=== PATIENT | female | born 1960 | race Caucasian/White ===

== ENCOUNTER → 2021-01-23 12:29 | Outpatient (CLI) | payer BC, SELFPAY ==
--- NOTE | ~2021-01-23 | MM_ITS ---
EXAMINATION: MM screening elvira BI w angela HISTORY: Screening mammogram TECHNIQUE: Craniocaudal and mediolateral oblique 3-D tomosynthesis images were obtained and synthetic 2-D images were generated. CAD analysis was submitted and interpreted. COMPARISON: 01/20/2018, 12/23/2016, 10/14/2014 bilateral digital screening mammogram examinations BREAST PARENCHYMAL COMPOSITION: There are scattered areas of fibroglandular density. FINDINGS: Stable mild fibroglandular asymmetry. There is no evidence of suspicious mass, calcificatio n, or architectural distortion to suggest malignancy in either breast. There has been no suspicious i nterval change. IMPRESSION: 1. No mammographic evidence of malignancy. 2. Recommend routine screening mammography in one year. BI-RADS Category 2: Benign finding(s). Reviewed, dictated and finalized at location A.
== END ==
PROVIDERS: Visit Provider Nurse Practitioner
DX: Z12.31 Encounter for screening mammogram for malignant neoplasm of breast (principal)
CPT/HCPCS: 77063; 77067

== ENCOUNTER → 2021-03-13 18:08 | Outpatient (CLI) | payer BC, SELFPAY ==
--- NOTE | ~2021-03-13 | DEXA_ITS ---
Bone Density Report Name: Ramona Corona Age: 60 Sex: Female Ethnicity: White Date of : 1960 Indication: postmenopausal; screening for osteoporosis; cancer; Referring Provider: Grant*Tru, Angeline Study: Bone densitometry was performed. Exam Date: March 13, 2021 Accession number: [id number] Bone Density: Region BMD T-score Z-score Classification AP Spine (L1-L4) 0.909 -1.3 0.1 Osteopenia Femoral Neck (Left) 0.709 -1.3 -0.1 Osteopenia Total Hip (Left) 0.921 -0.2 0.7 Normal Femoral Neck (Right) 0.679 -1.5 -0.3 Osteopenia Total Hip (Right) 0.845 -0.8 0.1 Normal Total Hip Mean 0.883 -0.5 0.4 Normal World Health Organization criteria for BMD impression classify patients as: Normal (T-score at or above -1.0), Osteopenia (T-score between -1.0 and -2.5), or Osteoporosis (T-score at or below -2.5). 10-year Fracture Risk(1): Major Osteoporotic Fracture 7.3% Hip Fracture 0.6% Reported Risk Factors: [place] (), Neck BMD=0.679, BMI=32.2 (1) FRAX(R) Version 3.08. Fracture probability calculated for an untreated patient. Fracture probability may be lower if the patient has received treatment. Previous Exams: Region Exam Age BMD T-score BMD Change BMD Change Date g/cm2 vs Baseline vs Previous AP Spine(L1-L4) 03/13/2021 60 0.909 -1.3 -0.059 -0.059 12/23/2016 56 0.969 -0.7 Total Hip(Left) 03/13/2021 60 0.921 -0.2 -0.028 -0.028 12/23/2016 56 0.949 0.1 Total Hip(Right) 03/13/2021 60 0.845 -0.8 -0.058 -0.058 12/23/2016 56 0.903 -0.3 *Denotes significance at 95% confidence level, LSC for AP Spine = 0.022 g/cm2, LSC for Total Hip = 0.027 g/cm2 Clinical Information Provided by Patient: Has used the following medications: Calcium, MTV Has the following medical conditions: Cancer Patient maximum height was 64.5 Menopause Age: 55 Drinks caffeinated beverages Onset of menses at age 15 Number of children 3 Impression: The patient has low bone mass, based on the Right Femoral Neck T-score. The patient has an estimated ten-year risk of hip fracture of 0.6% and an estimated ten-year risk of major fracture of 7.3%, based on the WHO FRAX algorithm. No significant bone loss was observed. Discussion: BONE DENSITY IS LOW AT ONE OR MORE SKELETAL SITES. This patient's lowest T-score is low at one or more skeletal sites. It meets the World Health Organization's (WHO) criteri
== END ==
PROVIDERS: Visit Provider Nurse Practitioner
DX: Z78.0 Asymptomatic menopausal state (principal); M85.89 Other specified disorders of bone density and structure, multiple sites
CPT/HCPCS: 77080

== ENCOUNTER → 2022-04-22 09:59 | Outpatient (CLI) | payer BC, SELFPAY ==
--- NOTE | ~2022-04-22 | MM_ITS ---
EXAMINATION: MM screening elvira BI w angela HISTORY: Screening TECHNIQUE: Craniocaudal and mediolateral oblique 3-D tomosynthesis images were obtained and synthetic 2-D images were generated. CAD analysis was submitted and interpreted. COMPARISON: Comparison to multiple prior studies sequentially, with oldest reviewed study dated 07/10. BREAST PARENCHYMAL COMPOSITION: There are scattered areas of fibroglandular density. FINDINGS: There is no evidence of suspicious mass, calcification, or architectural distortion to sugg est malignancy in either breast. There has been no suspicious interval change. IMPRESSION: 1. No mammographic evidence of malignancy. 2. Recommend routine screening mammography in one year. BI-RADS Category 1: Negative Reviewed, dictated and finalized at location A.
== END ==
PROVIDERS: PCP Internal Medicine; Visit Provider Nurse Practitioner
DX: Z12.31 Encounter for screening mammogram for malignant neoplasm of breast (principal)
CPT/HCPCS: 77063; 77067

== ENCOUNTER 2022-10-07 01:10 | Day surgery (SDC) | payer BC, SELFPAY ==
--- NOTE | 2022-10-06 13:07 | PM.HPGS ---
History of Present Illness History of Present Illness Consent: Risks, benefits, and alternatives have been discussed and questions answered. Patient agrees to proceed with procedure. Chief complaint: hx of colon polyps, fam hx of colon cancer Narrative: Ramona Corona is a 62 year old female Who was sent for colon cancer screening. She had colon cancer resected 5 years ago after it had been discovered on colonoscopy. All lymph nodes were negative. There was only submucosal invasion by the tumor. Review of Systems Review of Systems: All systems reviewed & are unremarkable except as noted in HPI and below PMFSH Past Medical History Medical History Arthritis Benign bladder tumor Kidney stones Rectal polyp Seasonal allergies Surgical History Surgical History H/O cervical spine surgery History of cardiac catheterization S/P right rotator cuff repair Family History Family History Other Family history of malignant neoplasm Social History Social History Smoking status: Never smoker Alcohol intake: current Substance use type: does not use Living arrangements: with family Gender identity (if verbalized by the patient): Female Spiritual care concerns: No Meds Home Medications and Allergies Home Medications Medication Instructions Recorded Confirmed Type atorvastatin 20 mg tablet 20 mg PO DAILY 09/28/22 09/28/22 History cholecalciferol (vitamin D3) 25 25 mcg PO DAILY 09/28/22 09/28/22 History mcg (1,000 unit) tablet multivit with minerals-iron 18 1 tablet PO DAILY 09/28/22 09/28/22 History mg-folic ac 400 mcg-vit K 25 mcg tablet (One Daily Women's) Allergies Allergy/AdvReac Type Severity Reaction Status Date / Time ondansetron Allergy Unknown Hives Verified 10/07/22 10:11 Exam Const: General: alert Orientation/consciousness: patient oriented x3 Resp: Auscultation: clear to auscultation bilaterally Cardio: Rhythm: regular rhythm GI: GI Palp: Yes Soft to palpation and No Tenderness to palpation present (GI) Neuro: General: patient oriented x3 Assessment and Plan Assessment and plan (1) Colon cancer screening: Code(s): Z12.11 - Encounter for screening for malignant neoplasm of colon Status: Acute Assessment and Plan: Colonoscopy with possible biopsy or polypectomy or cautery or injection of substances.
[2022-10-07 10:13] VITALS: BP 140/89; PULSE 84; RESP 18; TEMP 36.2; O2SAT 100
[2022-10-07] MEDS: LACTATED RINGERS 1,000 ML 150 ML IV CONT (10:30)
--- NOTE | 2022-10-07 10:55 | P.PNAN_ITS ---
Anes - Initial Pre Proc Eval Procedure: Operation Date: 10/07/22 11:15 Proposed Procedures p Screening Colonoscopy - Garth Garg MD Date/Time: 10/07/22 10:55 Surgeon: Garth Garg MD Pre Op Diagnosis: hx of colon polyps, fam hx of colon cancer Patient Data Age: 62 Gender: F Height: 1.63 m Weight: 84.3 kg Last Vital Signs Temp 36.2 C L 10/07/22 10:13 Pulse 84 10/07/22 10:13 Resp 18 10/07/22 10:13 BP 140/89 10/07/22 10:13 Pulse Ox 100 10/07/22 10:13 O2 Del Method Room Air 10/07/22 10:13 Allergies Allergy/AdvReac Type Severity Reaction Status Date / Time ondansetron Allergy Unknown Hives Verified 10/07/22 10:11 Home Medications Medication Instructions Recorded Confirmed Type atorvastatin 20 mg tablet 20 mg PO DAILY 09/28/22 09/28/22 History cholecalciferol (vitamin D3) 25 25 mcg PO DAILY 09/28/22 09/28/22 History mcg (1,000 unit) tablet multivit with minerals-iron 18 1 tablet PO DAILY 09/28/22 09/28/22 History mg-folic ac 400 mcg-vit K 25 mcg tablet (One Daily Women's) Patient hx anesthesia problems: none Family hx anesthesia problems: none Results Review: All pre-operative results and documents have been reviewed as part of the pre- operative evaluation. PMFSH Past Medical History Medical History Arthritis Benign bladder tumor Kidney stones Rectal polyp Seasonal allergies Surgical History Surgical History H/O cervical spine surgery History of cardiac catheterization S/P right rotator cuff repair Family History Family History Other Family history of malignant neoplasm Social History Social History Smoking status: Never smoker Alcohol intake: current Substance use type: does not use Living arrangements: with family Gender identity (if verbalized by the patient): Female Spiritual care concerns: No Anes - Eval Final PreProcedure Day of Procedure 10/07/22 10:55 Patient weight: obese Heart: regular rate and rhythm Lungs: clear to auscultation Airway: Mallampati scale class II Neurological: alert and oriented Last oral intake: >/= 8 hours ASA classification: II Emergent: no Anesthetic plan: proceed Anesthesia type and monitoring: general GIVS and standard monitoring Results Review: All pre-operative results and documents have been reviewed as part of the pre- operative evaluation. Informed Consent: The patient's anesthetic plan and its attendant risks and benefits were discussed with the patient/family/POA. Questions were solicited and answers provided to the satisfaction of the patient/family/POA.
[2022-10-07] MEDS: SIMETHICONE ORAL SUSPENSION 20 MG/0.3 ML 30 ML BOTTLE 0.6 ML IRRIGATION (11:28)
[2022-10-07 11:38] VITALS: BP 133/70; PULSE 50; RESP 16; O2SAT 100
[2022-10-07 11:48] VITALS: BP 157/77; PULSE 54; RESP 24; O2SAT 98
[2022-10-07 11:57] VITALS: BP 119/70; PULSE 50; RESP 17; O2SAT 98
== END 2022-10-07 11:58 | disposition home or self-care (01) ==
PROVIDERS: PCP Internal Medicine; Visit Provider Internal Medicine Gastroenterology
PROC: 0DJD8ZZ Inspection of Lower Intestinal Tract, Via Natural or Artificial Opening Endoscopic (ICD-10-PCS; CPT 45378; principal; 2022-10-07 11:15)
DX: Z12.11 Encounter for screening for malignant neoplasm of colon (principal); D12.8 Benign neoplasm of rectum; K64.8 Other hemorrhoids; Z98.0 Intestinal bypass and anastomosis status; Z90.49 Acquired absence of other specified parts of digestive tract; Z85.038 Personal history of other malignant neoplasm of large intestine; E66.9 Obesity, unspecified; Z68.31 Body mass index [BMI] 31.0-31.9, adult
CPT/HCPCS: 45380; 88305; J2001; J2704; J7120

== ENCOUNTER 2024-01-16 10:26 | Outpatient (CLI) | payer OTHER, SELFPAY ==
--- NOTE | ~2024-01-16 | MM_ITS ---
EXAMINATION: MM screening elvira BI w angela HISTORY: Screening TECHNIQUE: Craniocaudal and mediolateral oblique 3-D tomosynthesis images were obtained and synthetic 2-D images were generated. CAD analysis was submitted and interpreted. COMPARISON: Comparison to multiple prior studies sequentially, with oldest reviewed study dated 03/2018. BREAST PARENCHYMAL COMPOSITION: Not dense: There are scattered areas of fibroglandular density. FINDINGS: There is no evidence of suspicious mass, calcification, or architectural distortion to sugg est malignancy in either breast. There has been no suspicious interval change. IMPRESSION: 1. No mammographic evidence of malignancy. 2. Recommend routine screening mammography in one year. BI-RADS Category 1: Negative Reviewed, dictated and finalized at location B.
--- NOTE | ~2024-01-16 | DEXA_ITS ---
Bone Density Report Name: Ramona Corona Age: 63 Sex: Female Ethnicity: White Date of : 1960 Indication: osteopenia; postmenopausal Referring Provider: Grant, Angeline Study: Bone densitometry was performed. Exam Date: January 16, 2024 Accession number: [id number] Bone Density: Region BMD T-score Z-score Classification AP Spine (L1-L4) 0.847 -1.8 -0.3 Osteopenia Femoral Neck (Left) 0.692 -1.4 -0.1 Osteopenia Total Hip (Left) 0.875 -0.5 0.5 Normal Femoral Neck (Right) 0.695 -1.4 0.0 Osteopenia Total Hip (Right) 0.813 -1.1 0.0 Osteopenia Total Hip Mean 0.844 -0.8 0.3 Normal World Health Organization criteria for BMD impression classify patients as: Normal (T-score at or above -1.0), Osteopenia (T-score between -1.0 and -2.5), or Osteoporosis (T-score at or below -2.5). 10-year Fracture Risk(1): Major Osteoporotic Fracture 7.7% Hip Fracture 0.6% Reported Risk Factors: [place] (), Neck BMD=0.695, BMI=32.2 (1) FRAX(R) Version 3.08. Fracture probability calculated for an untreated patient. Fracture probability may be lower if the patient has received treatment. Previous Exams: Region Exam Age BMD T-score BMD Change BMD Change Date g/cm2 vs Baseline vs Previous AP Spine(L1-L4) 01/16/2024 63 0.847 -1.8 -0.121* -0.062 03/13/2021 60 0.909 -1.3 -0.059 -0.059 12/23/2016 56 0.969 -0.7 Total Hip(Left) 01/16/2024 63 0.875 -0.5 -0.074* -0.046 03/13/2021 60 0.921 -0.2 -0.028 -0.028 12/23/2016 56 0.949 0.1 Total Hip(Right) 01/16/2024 63 0.813 -1.1 -0.090* -0.033 03/13/2021 60 0.845 -0.8 -0.058 -0.058 12/23/2016 56 0.903 -0.3 *Denotes significance at 95% confidence level, LSC for AP Spine = 0.022 g/cm2, LSC for Total Hip = 0.027 g/cm2 Clinical Information Provided by Patient: Has used the following medications: Vitamin D, Calcium, MTV Patient maximum height was 64.75 Menopause Age: 55 No regular weight bearing exercise Drinks caffeinated beverages Onset of menses at age 15 Number of children 3 Impression: The patient has low bone mass, based on the Total Spine T-score. The patient has an estimated ten-year risk of hip fracture of 0.6% and an estimated ten-year risk of major fracture of 7.7%, based on the WHO FRAX algorithm. No significant bone loss was observed. Discussion:
== END 2024-01-16 10:27 ==
PROVIDERS: PCP Nurse Practitioner; Visit Provider Nurse Practitioner
DX: Z12.31 Encounter for screening mammogram for malignant neoplasm of breast (principal); M85.88 Other specified disorders of bone density and structure, other site; M85.852 Other specified disorders of bone density and structure, left thigh; M85.851 Other specified disorders of bone density and structure, right thigh
CPT/HCPCS: 77063; 77067; 77080

== ENCOUNTER 2025-01-17 09:53 | Outpatient (CLI) | payer OTHER, SELFPAY ==
--- NOTE | ~2025-01-17 | MM_ITS ---
EXAMINATION: MM screening elvira BI w angela HISTORY: Screening TECHNIQUE: Craniocaudal and mediolateral oblique 3-D tomosynthesis images were obtained and synthetic 2-D images were generated. CAD analysis was submitted and interpreted. COMPARISON: Comparison to multiple prior studies sequentially, with oldest reviewed study dated 06/2017. BREAST PARENCHYMAL COMPOSITION: Not dense: There are scattered areas of fibroglandular density. FINDINGS: There is no evidence of suspicious mass, calcification, or architectural distortion to sugg est malignancy in either breast. There has been no suspicious interval change. IMPRESSION: 1. No mammographic evidence of malignancy. 2. Recommend routine screening mammography in one year. BI-RADS Category 1: Negative Reviewed, dictated and finalized at location A.
== END 2025-01-17 09:54 | disposition home or self-care (01) ==
LOC: MICIMG 09:58
PROVIDERS: PCP Obstetrics & Gynecology Gynecology; Visit Provider Obstetrics & Gynecology Gynecology
DX: Z12.31 Encounter for screening mammogram for malignant neoplasm of breast (principal)
CPT/HCPCS: 77063; 77067